=== PATIENT | male | born 1955 | race Caucasian/White ===

== ENCOUNTER → 2016-06-18 | Outpatient (CLI) | payer BC ==
[~2016-06-18] MED LIST: GADAVIST IV PRN; MULT-506 PO; OMEG10007 PO; SERT-234 PO
--- NOTE | 2016-06-18 22:54 | DIAGNOSTIC IMAGING REPORT ---
MRI OF THE LEFT KNEE WITH AND WITHOUT CONTRAST CLINICAL HISTORY: Lyme disease. Tear of medial collateral ligament. Left knee pain and swelling. COMPARISON STUDY: Left knee radiograph May 15, 2016. TECHNIQUE: Utilizing 1.5 Meghan magnet, multiplanar, multiecho imaging of the left knee was performed pre and postcontrast administration. Injection of 7 cc of Gadavist IV was uneventful. FINDINGS: Alignment of left knee is anatomic. Extensor mechanism is in intact. There is mild signal abnormality within the distal patellar tendon which suggests mild tendinopathy. There is no full-thickness tear. There is a large joint effusion with synovial thickening and pronounced enhancement. No marrow replacement is present. There is minimal marrow signal abnormality within the posterior aspect of the proximal tibia as well as the medial femoral condyle which is likely chronic. The cruciate and collateral ligaments are intact. The lateral meniscus is intact. There is an oblique tear of the body and posterior horn of the medial meniscus. Note is made of mild to moderate chondrosis within the medial and patellofemoral compartments. There is mild chondrosis within the lateral compartment. A small popliteal cyst is present. IMPRESSION: 1. Large left knee joint effusion with pronounced synovial enhancement. This enhancement is nonspecific and could be correlated with joint fluid sampling as this could be degenerative, inflammatory or infectious. 2. Oblique tear of the body and posterior horn of the medial meniscus. 3. 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 Electronically signed by: Tyron Briceno M.D. 06/18/2016 10:52 PM Dictated Date/Time: 06/18/2016 6:40 PM
== END | disposition home or self-care (01) ==
LOC: C.MRI 15:54
PROVIDERS: ATTEND Internal Medicine Infectious Disease
DX: A69.20 Lyme disease, unspecified (principal); S83.419A Sprain of medial collateral ligament of unspecified knee, initial encounter; S83.242A Other tear of medial meniscus, current injury, left knee, initial encounter; M25.462 Effusion, left knee; X58.XXXA Exposure to other specified factors, initial encounter

== ENCOUNTER → 2016-07-10 | Outpatient (CLI) | payer BC ==
[~2016-07-10] MED LIST changes: -GADAVIST IV PRN
[2016-07-10 15:17] LABS: SYNOVIAL FLUID APPEARANCE CLOUDY; SYNOVIAL FLUID COLOR STRAW
[2016-07-10 15:19] LABS: SYNOVIAL FLUID MONONUC RELAT 22.3 %; SYNOVIAL FLUID POLYNUC RELAT 77.7 %
== END | disposition home or self-care (01) ==
LOC: C.LAB 13:14
PROVIDERS: ATTEND Orthopaedic Surgery Sports Medicine
DX: M25.462 Effusion, left knee (principal)